=== PATIENT | male | born 1940 | race Caucasian/White ===

== ENCOUNTER 2018-07-31 10:45 | Day surgery (SDC) | payer BC ==
[2018-07-31] VITALS (11 sets, daily range): BP systolic 134–157; BP diastolic 67–93
[~2018-07-31] VITALS: Ht 175.3 cm; Wt 86.0 kg
[2018-07-31] MEDS ORDERED: LORazepam 0.5 MG tablet PO PRN (11:15)
[2018-07-31] MEDS ORDERED: diphenhydrAMINE 25mg capsule PO PRN (11:15)
[2018-07-31] MEDS ORDERED: glucagon, human recombinant 1mg kit SUBCUT PRN (11:15)
[2018-07-31] MEDS ORDERED: insulin Lispro (HumaLOG) vial - multi-dose SQ SCH (11:15)
[2018-07-31] MEDS ORDERED: dextrose ORAL solution 15 GM/59 ML bottle PO PRN ×2 (11:15)
[2018-07-31] MEDS ORDERED: dextrose 50%-water 50ml dispensing syringe IV PRN ×2 (11:15)
[2018-07-31] MEDS ORDERED: nitroGLYCERIN 0.4mg SUBLingual tab SL PRN (11:15)
[2018-07-31] MEDS ORDERED: MESSAGE TO PHARMACY PO ONE (11:15)
[2018-07-31] MEDS ORDERED: normal saline 1000ml 1,000 ML IV SCH (11:15)
[2018-07-31] MEDS ORDERED: FINA5TAB11 PO (11:25)
[2018-07-31] MEDS ORDERED: ATOR10TA70 PO (11:25)
[2018-07-31] MEDS ORDERED: COLE1TAB2 PO (11:25)
[2018-07-31] MEDS ORDERED: OMEP-50 PO (11:25)
[2018-07-31] MEDS ORDERED: VITA20002 PO (11:25)
[2018-07-31] MEDS ORDERED: LEVO100T PO (11:25)
[2018-07-31] MEDS ORDERED: ASPI-107 PO (11:25)
[2018-07-31] MEDS ORDERED: GEMF600T89 PO (11:25)
[2018-07-31] MEDS ORDERED: ATEN50TA8 PO (11:25)
[2018-07-31] MEDS ORDERED: LOSA50TA64 PO (11:25)
[2018-07-31] MEDS ORDERED: TERA5CAP4 PO (11:25)
[2018-07-31] MEDS ORDERED: OMEG1CAP2 PO (11:25)
[2018-07-31] MEDS ORDERED: MULT-1085 PO (11:25)
[2018-07-31] MEDS ORDERED: METF-950 PO (11:25)
[2018-07-31] MEDS ORDERED: midazolam 2 mg/2 ml injection ONE ×2 (12:12→13:02)
[2018-07-31] MEDS ORDERED: iohexol 350 MG/ML 50ML vial IV ONE ×2 (12:13→13:10)
[2018-07-31] MEDS ORDERED: fentaNYL/PF 50MCG/1 ML 2ML syringe ONE (12:13)
[2018-07-31] MEDS ORDERED: iohexol 350MG/ML 100ml bottle IV ONE (12:13)
[2018-07-31] MEDS ORDERED: LIDOcaine 1% (10mg/ml)w/preservative injection 20ml MDV ONE (12:13)
[2018-07-31] MEDS ORDERED: pneumococcal 23-VAL P-sac vacc 25 mcg/0.5ml vial IMVAC ONE (14:00)
[2018-07-31] MEDS ORDERED: insulin glargine (Lantus) pen - multi-dose SQ SCH (21:00)
== END 2018-07-31 19:20 | disposition home or self-care (01) ==
LOC: SSTAY O 10:45
PROVIDERS: ATTEND Internal Medicine Cardiovascular Disease
DX: I25.10 Atherosclerotic heart disease of native coronary artery without angina pectoris (principal); I34.1 Nonrheumatic mitral (valve) prolapse; I10 Essential (primary) hypertension; E78.5 Hyperlipidemia, unspecified; E11.9 Type 2 diabetes mellitus without complications; I25.2 Old myocardial infarction; G47.33 Obstructive sleep apnea (adult) (pediatric); H91.8X3 Other specified hearing loss, bilateral; Z87.01 Personal history of pneumonia (recurrent); Z87.09 Personal history of other diseases of the respiratory system; Z99.81 Dependence on supplemental oxygen; Z79.84 Long term (current) use of oral hypoglycemic drugs; Z86.74 Personal history of sudden cardiac arrest; Z79.82 Long term (current) use of aspirin; Z86.79 Personal history of other diseases of the circulatory system; Z79.899 Other long term (current) drug therapy; Z98.890 Other specified postprocedural states
CPT/HCPCS: 82948; 93458; 99152; 99153; A6257; C1760; J1644; J2001; J2250; J3010; J7030; Q0163; Q9967; C1769; J1815